=== PATIENT | male | born 1995 | race Caucasian/White ===

== ENCOUNTER 2017-11-03 00:05 | Emergency (ER) | payer SELFPAY ==
[2017-11-03] MEDS ORDERED: LORazepam INJ* 2 MG/ML 1 ML VIAL IV ONE (00:33)
[2017-11-03] MEDS ORDERED: NS 0.9% 1000 ML* 1,000 ML IV ONE (00:33)
[2017-11-03 01:03] LABS: ABS Basophils 0 10^3/ul (0-0.2); ABS Eosinophils 0 10^3/ul (0-0.6); ABS Lymphocytes 1.1 10^3/ul (1.0-4.8); ABS Monocytes 0.4 10^3/ul (0-0.8); ABS Neutrophils 7.4 10^3/ul (1.5-7.7); ABS Nucleated RBC 0 10^3/ul; Eosinophil % 0 % (0-6); Hematocrit 46 % (42-52); Hemoglobin 15.9 g/dl (14.0-18.0); Lymphocyte % 12.2 % (25-47); Mean Corpuscular HGB Conc 35 g/dl (31-36); Mean Corpuscular Hemoglobin 31 pg (27-31); Mean Corpuscular Volume 89 fL (80-94); Mean Platelet Volume 7.3 um3 (7.4-10.4); Nucleated Red Blood Cells % 0.1; Platelet Count 253 10^3/ul (150-450); Red Blood Count 5.17 10^6/ul (4.0-5.4); Red Cell Distribution Width 13 % (10.5-15)
[2017-11-03 01:20] LABS: EGFR Non-African American 123.2 (>60)
[2017-11-03 05:18] LABS: Urine Appearance Clear; Urine Blood Negative (Negative); Urine Color Yellow; Urine Ketones 2+ (Negative); Urine Protein Negative (Negative); Urine Specific Gravity 1.005 (1.010-1.030); Urine Urobilinogen Negative (Negative)
--- NOTE | 2017-11-03 07:09 | ED ---
Sandy Michelle Gabriel, scribed for Jake Prakash MD on 11/03/17 at 0102 . Altered Mental Status - HPI Summary HPI Summary: This patient is a 22 year old M brought in by police on a 941 to [facility]. EMS/ police report that the patient was tachycardia, diaphoretic, apprehensive, and has dilated pupils. They also state that they were called by a student support counselor who claimed the patient needed mental health support. Pt told police that he doesnt know his name and states he doesnt have a personality. Upon arrival patient is unaware of the school he goes to, where he grew up, where his parents are, why he is here, and any past medical history including mental health issues. Patient denies drug use, prescription med use, CP, SOB, ABD pain , n/v/d, DUNCAN, blurred vision, and dry mouth. He states he does not use drugs or alcohol, nor does he have visual or auditory hallucinations. Pt says he is not a threat to staff but that the staff is a threat to him. LEVEL 5 CAVEAT: a thorough exam is limited due to patients confusion - History Of Current Complaint Stated Complaint: 941 Time Seen by Provider: 11/03/17 00:22 Hx Obtained From: Patient, EMS, Other: - police Onset/Duration: Unknown, Still Present Timing: Constant Severity Initially: Moderate Severity Currently: Moderate Character: Confusion Aggravating Factor(s): Unknown Alleviating Factor(s): Unknown - Allergies/Home Medications Allergies/Adverse Reactions: Allergies Allergy/AdvReac Type Severity Reaction Status Date / Time No Known Allergies Allergy Verified 11/03/17 02:35 Home Medications: Home Medications NK [No Home Medications Reported] 11/03/17 [History Confirmed 11/03/17] PMH/Surg Hx/FS Hx/Imm Hx - Additional Comments History Additional Comments: LEVEL 5 CAVEAT: history is limited due to patients confusion Review of Systems - ROS Summary Review of Systems Summary: LEVEL 5 CAVEAT: ROS is limited due to patients confusion Positive: Other - AMS All Other Systems Reviewed And Are Negative: No Physical Exam - Summary Physical Exam Summary: Appearance: Well appearing, appears paranoid, is amnestic Skin: warm, dry, reflects adequate perfusion Head/face: normal Eyes: EOMI, pupils are 4-5mm and reactive ENT: normal Neck: supple, non-tender Respiratory: CTA, breath sounds present Cardiovascular: tachycardic, pulses symmetrical Abdomen: non-tender, soft Bowel Sounds: present Musculoskeletal: normal, strength/ROM intact Neuro: sensory motor intact, he is oriented to person and place but not date or time, he has a bizarre affect that seems hostile He enters catatonic states where he stares blankly and will not follow commands Triage Information Reviewed: Yes Vital Signs On Initial Exam: Initial Vitals Temp Pulse Resp BP Pulse Ox 98.9 F 127 23 155/101 95 11/03/17 00:05 11/03/17 00:05 11/03/17 00:05 11/03/17 00:05 11/03/17 00:05 Vital Signs Reviewed: Yes Completion Of Physical Exam Limited Due To: Altered Mental Status, Level 5 Diagnostics - Vital Signs Vital Signs Temp Pulse Resp BP Pulse Ox 11/03/17 06:43 98.2 F 116 147/91 97 11/03/17 03:16 97.6 F 125 115/88 96 11/03/17 00:41 23 11/03/17 00:05 98.9 F 127 23 155/101 95 - Laboratory Lab Results: Lab Results 11/03/17 11/03/17 11/03/17 Range/Units 00:55 00:55 05:00 WBC 9.0 (3.5-10.8) 10^3/ul RBC 5.17 (4.0-5.4) 10^6/ul Hgb 15.9 (14.0-18.0) g/dl Hct 46 (42-52) % MCV 89 (80-94) fL MCH 31 (27-31) pg MCHC 35 (31-36) g/dl RDW 13 (10.5-15) % Plt Count 253 (150-450) 10^3/ul MPV 7.3 L (7.4-10.4) um3 Neut % (Auto) 82.7 (38-83) % Lymph % (Auto) 12.2 L (25-47) % [place] % (Auto) 5.0 (0-7) % Eos % (Auto) 0 (0-6) % Baso % (Auto) 0.1 (0-2) % Absolute Neuts (auto) 7.4 (1.5-7.7) 10^3/ul Absolute Lymphs (auto) 1.1 (1.0-4.8) 10^3/ul Absolute Monos (auto) 0.4 (0-0.8) 10^3/ul Absolute Eos (auto) 0 (0-0.6) 10^3/ul Absolute Basos (auto) 0 (0-0.2) 10^3/ul Absolute Nucleated RBC 0 10^3/ul Nucleated RBC % 0.1 Sodium 134 L (139-145) mmol/L Potassium 3.9 (3.5-5.0) mmol/L Chloride 98 L (101-111) mmol/L Carbon Dioxide 22 (22-32) mmol/L Anion Gap 14 H (2-11) mmol/L BUN 4 L (6-24) mg/dL Creatinine 0.80 (0.67-1.17) mg/dL Est GFR ( Amer) 158.5 (>60) Est GFR (Non-Af Amer) 123.2 (>60) BUN/Creatinine Ratio 5.0 L (8-20) Glucose 142 H (70-100) mg/dL Calcium 10.0 (8.6-10.3) mg/dL Total Bilirubin 1.10 H (0.2-1.0) mg/dL AST 28 (13-39) U/L ALT 17 (7-52) U/L Alkaline Phosphatase 62 (34-104) U/L Total Protein 7.9 (6.4-8.9) g/dL Albumin 5.2 (3.2-5.2) g/dL Globulin 2.7 (2-4) g/dL Albumin/Globulin Ratio 1.9 (1-3) TSH 1.43 (0.34-5.60) mcIU/mL Urine Color Urine Appearance Urine pH (5-9) Ur Specific Joiner (1.010-1.030) Urine Protein (Negative) Urine Ketones (Negative) Urine Blood (Negative) Urine Nitrate (Negative) Urine Bilirubin (Negative) Urine Urobilinogen (Negative) Ur Leukocyte Esterase (Negative) Urine Glucose (Negative) Salicylates < 2.50 (<30) mg/dL Urine Opiates Screen None detected (None Detect) Acetaminophen < 15 mcg/mL Ur Barbiturates Screen None detected (None Detect) Ur Phencyclidine Scrn None detected (None Detect) Ur Amphetamines Screen None detected (None Detect) U Benzodiazepines Scrn None detected (None Detect) Urine Cocaine Screen None detected (None Detect) U Cannabinoids Screen None detected (None Detect) Serum Alcohol < 10 (<10) mg/dL 11/03/17 Range/Units 05:00 WBC (3.5-10.8) 10^3/ul RBC (4.0-5.4) 10^6/ul Hgb (14.0-18.0) g/dl Hct (42-52) % MCV (80-94) fL MCH (27-31) pg MCHC (31-36) g/dl RDW (10.5-15) % Plt Count (150-450) 10^3/ul MPV (7.4-10.4) um3 Neut % (Auto) (38-83) % Lymph % (Auto) (25-47) % [place] % (Auto) (0-7) % Eos % (Auto) (0-6) % Baso % (Auto) (0-2) % Absolute Neuts (auto) (1.5-7.7) 10^3/ul Absolute Lymphs (auto) (1.0-4.8) 10^3/ul Absolute Monos (auto) (0-0.8) 10^3/ul Absolute Eos (auto) (0-0.6) 10^3/ul Absolute Basos (auto) (0-0.2) 10^3/ul Absolute Nucleated RBC 10^3/ul Nucleated RBC % Sodium (139-145) mmol/L Potassium (3.5-5.0) mmol/L Chloride (101-111) mmol/L Carbon Dioxide (22-32) mmol/L Anion Gap (2-11) mmol/L BUN (6-24) mg/dL Creatinine (0.67-1.17) mg/dL Est GFR ( Amer) (>60) Est GFR (Non-Af Amer) (>60) BUN/Creatinine Ratio (8-20) Glucose (70-100) mg/dL Calcium (8.6-10.3) mg/dL Total Bilirubin (0.2-1.0) mg/dL AST (13-39) U/L ALT (7-52) U/L Alkaline Phosphatase (34-104) U/L Total Protein (6.4-8.9) g/dL Albumin (3.2-5.2) g/dL Globulin (2-4) g/dL Albumin/Globulin Ratio (1-3) TSH (0.34-5.60) mcIU/mL Urine Color Yellow Urine Appearance Clear Urine pH 6.0 (5-9) Ur Specific Joiner 1.005 L (1.010-1.030) Urine Protein Negative (Negative) Urine Ketones 2+ A (Negative) Urine Blood Negative (Negative) Urine Nitrate Negative (Negative) Urine Bilirubin Negative (Negative) Urine Urobilinogen Negative (Negative) Ur Leukocyte Esterase Negative (Negative) Urine Glucose Negative (Negative) Salicylates (<30) mg/dL Urine Opiates Screen (None Detect) Acetaminophen mcg/mL Ur Barbiturates Screen (None Detect) Ur Phencyclidine Scrn (None Detect) Ur Amphetamines Screen (None Detect) U Benzodiazepines Scrn (None Detect) Urine Cocaine Screen (None Detect) U Cannabinoids Screen (None Detect) Serum Alcohol (<10) mg/dL Result Diagrams: 11/03/17 00:55 11/03/17 00:55 Lab Statement: Any lab studies that have been ordered have been reviewed, and results considered in the medical decision making process. Re-Evaluation - Re-Evaluation First Eval Change: Improved - Patient is now more cooperative but still has difficulty with memory. Altered Mental Statu Course/Dx - Course Course Of Treatment: Patient with bizarre and aggressive behavior prior to coming to the ER in the presence of EMS and police. There is report from his roommate in college about mental health issues. He is not known to have been drinking or using drugs. He is extremely paranoid and at times catatonic. He reports not being aware or remembering many fitzgerald features of his life to include where he is from, his parents are, etc. He seemed to improve here and become more comfortable and less paranoid throughout her course. Laboratories are unrevealing. It is possible that he did have an amp nest stick few, or global amnesia, but at this juncture mental health etiology seems more likely. Crisis evaluation was obtained and is still underway at time patient was signed out to oncoming ER provider. - Diagnoses Differential Diagnosis/HQI/PQRI: Medication Reaction, Metabolic Disorder, Other - Drug or alcohol abuse, schizophrenia, global amnesia, amnestic fugue Provider Diagnoses: Paranoia, Amnesia, Altered mental status Discharge - Sign-Out/Discharge Documenting (check all that apply): Sign-Out Patient Signing out patient TO: Bird Doherty - Discharge Plan Condition: Stable Discharge Disposition Comment: signed out at 7 AM - Billing Disposition and Condition Condition: STABLE The documentation as recorded by the Sandy robison Gabriel accurately reflects the service I personally performed and the decisions made by me, Jake Prakash MD.
[2017-11-03] MEDS ORDERED: LORazepam TAB(*) 1 MG PO ONE (07:28)
--- NOTE | 2017-11-03 08:32 | RAD ---
Indication: Altered mental status. Comparison: No relevant prior exams available on the [facility] PACS for comparison. Technique: Noncontrast CT vertex of skull through foramen magnum. Report: The sulci, ventricles, and basal cisterns are normal for age. Lee matter white matter differentiation is preserved without evidence for edema. No intra or extra axial hemorrhage, mass, or fluid collection detected. Unremarkable visualized orbital contents. Negative for calvarial or skull base fracture. Groundglass opacity at the midline anterior skull base involving the LEFT sphenoid sinus is most suspicious for fibrous dysplasia. Unremarkable scalp. The visualized paranasal sinuses and mastoid air spaces are clear. IMPRESSION: 1. No acute intracranial process evident to account for altered mental status. 2. 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
--- NOTE | 2017-11-03 21:37 | ED ---
Luis Michelle Jennifer, scribed for Bird Doherty MD on 11/03/17 at 0904 . Progress - Progress Note Progress Note: The patient is a sign out from Dr. Prakash pending Brain CT. Brain CT. Interpreted by a radiologist. IMPRESSION: 1. No acute intracranial process evident to account for altered mental status. 2. 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 Dr. Doherty has reviewed this report. - Consult/PCP Time Called: 00:05 Re-Evaluation - Re-Evaluation First Eval Change: Improved - Patient is now more cooperative but still has difficulty with memory. Discharge - Sign-Out/Discharge Documenting (check all that apply): Discharge/Admit/Transfer Signing out patient TO: Jake Prakash - Discharge Plan Condition: Stable Disposition: [facility]ATRIC FAC[facility] [place] Referrals: [facility] [Primary Care Provider] - - Billing Disposition and Condition Condition: STABLE Disposition: [facility] The documentation as recorded by the Luis robison Jennifer accurately reflects the service I personally performed and the decisions made by , Bird Doherty MD.
[2017-11-04] MEDS ORDERED: LORazepam TAB(*) 1 MG PO ONE (00:27)
--- NOTE | 2017-11-04 01:19 | ED ---
Mauri Michelle Rebecca, scribed for Jake Prakash MD on 11/03/17 at 2213 . Progress - Progress Note Progress Note: Pt was signed out by Dr. Doherty, pending dispo, awaiting MHE. Re-Evaluation - Re-Evaluation First Eval Change: Improved - Patient is now more cooperative but still has difficulty with memory. Course/Dx - Course Course Of Treatment: Pt was signed out by Dr. Doherty, pending dispo, awaiting MHE. Upon completino of MHE and consultation with Dr. Pierson it has been determined that the pt will be transferred to [facility]. 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 - Diagnoses Provider Diagnoses: Unspecified psychosis - Provider Notifications Discussed Care Of Patient With: Dr. Quezada Time Discussed With Above Provider: 00:50 Instructed by Provider To: Other - Accepting physician is Dr. Quezada at [facility], explained the patient's presentation. Discharge - Sign-Out/Discharge Documenting (check all that apply): Discharge/Admit/Transfer - Transfer, Receiving Sign-Out Receiving patient FROM: Bird Doherty - Pending MHE - Discharge Plan Condition: Stable Disposition: PSYCHIATRIC FACILITY-OTHER Referrals: [facility] [Primary Care Provider] - - Billing Disposition and Condition Condition: STABLE Disposition: PSY-OTH The documentation as recorded by the Mauri robison Rebecca accurately reflects the service I personally performed and the decisions made by Olinda hernandez Kirk, MD.
[2017-11-04 01:58] VITALS: BP 128/75
== END 2017-11-04 02:06 ==
LOC: ED 00:05
DX: F22 Delusional disorders (principal); R41.3 Other amnesia; R41.82 Altered mental status, unspecified; R00.0 Tachycardia, unspecified; R41.0 Disorientation, unspecified; F09 Unspecified mental disorder due to known physiological condition
CPT/HCPCS: 36415; 70450; 80053; 80307; 80320; 80329; 81003; 84443; 85025; 93005; 96374; 99285; G0480; J2060